=== PATIENT | male | born 1985 | race Two or more races ===

== ENCOUNTER 2017-09-04 18:53 | Emergency (ER) | payer OTHER ==
[~2017-09-04] VITALS: Ht 160 cm; Wt 75.3 kg
[~2017-09-04 18:53] MED LIST: SINGULAIR4 MG
== END 2017-09-04 22:38 | disposition home or self-care (01) ==
LOC: ER 18:53
DX: L03.114 Cellulitis of left upper limb (principal)

== ENCOUNTER 2024-03-11 09:56 | Emergency (ER) | payer OTHER ==
[~2024-03-11] VITALS: Ht 177.8 cm; Wt 73.5 kg
[2024-03-11] MEDS ORDERED: ADDERALL 15 MG15 MG (10:35)
[2024-03-11] MEDS ORDERED: DOXYCYCLINE HYCLATE 100 MG TABLET PO ONE (11:30)
== END 2024-03-11 12:23 | disposition home or self-care (01) ==
LOC: ER 09:56 → EDBD 09:56 → ER 10:03
DX: Z20.2 Contact with and (suspected) exposure to infections with a predominantly sexual mode of transmission (principal); Z88.0 Allergy status to penicillin

== ENCOUNTER 2024-03-12 16:50 | Emergency (ER) | payer OTHER ==
[~2024-03-12] VITALS: Ht 177.8 cm; Wt 73.5 kg
[~2024-03-12 16:50] MED LIST changes: +ADDERALL 15 MG15 MG
== END 2024-03-12 19:40 | disposition home or self-care (01) ==
LOC: ER 16:52
DX: K64.4 Residual hemorrhoidal skin tags (principal); Z88.0 Allergy status to penicillin

== ENCOUNTER 2025-02-20 10:28 | Emergency (ER) | payer OTHER ==
[~2025-02-20] VITALS: Ht 177.8 cm; Wt 78.0 kg
[2025-02-20] MEDS ORDERED: TRUVADA 100 MG1 EACH PO (10:38)
[2025-02-20] MEDS ORDERED: CIPROFLOXACIN IN 5 % DEXTROSE 400 MG/200 ML PIGGYBAG IV ONE (11:15)
[2025-02-20] MEDS ORDERED: FAMOTIDINE/PF 20 MG/2 ML VIAL IV ONE (11:15)
[2025-02-20] MEDS ORDERED: LACTOBACILLUS ACIDOPHILUS 1 CAP CAP PO ONE (11:15)
[2025-02-20] MEDS ORDERED: KETOROLAC TROMETHAMINE 30 MG VIAL IV ONE (11:15)
[2025-02-20] MEDS ORDERED: METRONIDAZOLE/SODIUM CHLORIDE 500 MG/100 ML PIGGYBACK IV ONE (11:15)
[2025-02-20 12:23] LABS: URINE APPEARANCE Clear; URINE BILIRRUBIN Negative (NEGATIVE); URINE BLOOD Negative; URINE COLOR Yellow; URINE GLUCOSE Negative (NEGATIVE); URINE KETONE Negative (NEGATIVE); URINE LEUKOCYTE Negative; URINE NITRATE Negative; URINE PROTEIN Negative (NEGATIVE); URINE UROBILINOGEN 0.2 E.U./dl
[2025-02-20 12:24] LABS: FECAL LEUKOCYTES POSITIVE (NEGATIVE)
[2025-02-20 12:26] LABS: URINE BACTERIA 4.8 uL (0.0-1933); URINE EPITHELIAL CELLS 1.9 uL (0.0-38.8); URINE RBC 2.0 uL (0.0-20.8)
[2025-02-20 12:27] LABS: URINE CAST 0.00 uL (0.0-1.40); URINE WBC 1.5 uL (0.0-23.2)
[2025-02-20 12:29] LABS: BASO % 0.4 % (0.1-1.2); EOS # 0.02 (0.04-0.54); EOS % 0.3 % (0.7-7.0); LYMPH # 1.48 (1.18-3.74); LYMPH % 21.3 % (19.3-53.1); MEAN PLATELET VOLUME 10.20 fl (9.4-12.4); MONO # 0.67 (0.24-0.82); MONO % 9.6 % (4.7-12.5); NEUT # 4.75 (1.56-6.13); NEUT % 68.3 % (34.0-71.1); RED CELL DISTRIBUTION WIDTH 14.0 % (11.6-14.4)
[2025-02-20 12:54] LABS: BUN CREA RATIO 9.0 (7.0-25.0); CREATININE SERUM 0.8 mg/dL (0.70-1.30); GFR 112.75; GLUCOSE FASTING 98.0 mg/dL (65-100); OSMOLALITY SERUM 277.0 MOSM/KG (275-295)
[2025-02-21] MEDS ORDERED: 0.9 % SODIUM CHLORIDE 1,000 ML IV SCH (09:00)
== END 2025-02-20 15:22 | disposition home or self-care (01) ==
LOC: ER 10:28
PROVIDERS: General Practice
DX: R10.9 Unspecified abdominal pain (principal); K52.9 Noninfective gastroenteritis and colitis, unspecified; Z88.0 Allergy status to penicillin

== ENCOUNTER 2025-03-15 20:26 | Emergency (ER) | payer OTHER ==
[~2025-03-15] VITALS: Ht 177.8 cm; Wt 75.7 kg
[~2025-03-15 20:26] MED LIST changes: +TRUVADA 100 MG1 EACH PO
[2025-03-15] MEDS ORDERED: METHYLPREDNISOLONE SOD SUCC 125 MG VIAL IV STA (21:28)
[2025-03-15] MEDS ORDERED: IPRATROPIUM BROMIDE 0.5 MG/2.5 ML AMPUL.NEB IH STA (21:29)
[2025-03-15] MEDS ORDERED: ALBUTEROL SULFATE 3 ML/2.5 MG AMPUL.NEB IH SCH (21:30)
[2025-03-15] MEDS ORDERED: ALBUTEROL SULFATE 3 ML/2.5 MG AMPUL.NEB IH ONE (22:02)
[2025-03-15] MEDS ORDERED: IPRATROPIUM BROMIDE 0.5 MG/2.5 ML AMPUL.NEB IH ONE (22:02)
[2025-03-15] MEDS ORDERED: METHYLPREDNISOLONE SOD SUCC 40 MG VIAL ONE (22:03)
[2025-03-15 22:19] LABS: BASO % 0.5 % (0.1-1.2); EOS # 0.22 (0.04-0.54); EOS % 5.8 % (0.7-7.0); LYMPH # 1.27 (1.18-3.74); LYMPH % 33.5 % (19.3-53.1); MEAN PLATELET VOLUME 10.70 fl (9.4-12.4); MONO # 0.38 (0.24-0.82); MONO % 10.0 % (4.7-12.5); NEUT # 1.89 (1.56-6.13); NEUT % 49.9 % (34.0-71.1); RED CELL DISTRIBUTION WIDTH 13.7 % (11.6-14.4)
[2025-03-15 22:30] LABS: ERYTHROCYTE SEDIMENTATION RATE 11 mm/hr (0-15)
[2025-03-15 22:43] LABS: ALT/SGPT 45.0 U/L (12-78); AST/SGOT 30.0 U/L (15-37); BILIRUBIN TOTAL 0.58 mg/dL (0.3-1.2); BUN CREA RATIO 8.0 (7.0-25.0); CREATININE SERUM 0.72 mg/dL (0.70-1.30); GFR 127.33; GLOBULINA 3.7 G/DL (2.4-3.5); GLUCOSE FASTING 97.0 mg/dL (65-100); OSMOLALITY SERUM 281.0 MOSM/KG (275-295)
[2025-03-15 23:48] LABS: COVID-19 AG NEGATIVE (NEGATIVE)
[2025-03-16] MEDS ORDERED: ALBUTEROL2.5 MG/3 M IH (01:47)
[2025-03-16] MEDS ORDERED: BUDESONIDE0.5 MG/2 M IH (01:47)
[2025-03-16] MEDS ORDERED: OSEL75CA PO (01:47)
== END 2025-03-16 02:10 | disposition home or self-care (01) ==
LOC: ER 20:27
PROVIDERS: Physician Assistant Medical
DX: B34.9 Viral infection, unspecified (principal); J10.1 Influenza due to other identified influenza virus with other respiratory manifestations; J20.1 Acute bronchitis due to Hemophilus influenzae; J45.909 Unspecified asthma, uncomplicated; R05.8 Other specified cough; R06.02 Shortness of breath; R50.9 Fever, unspecified; Z20.822 Contact with and (suspected) exposure to COVID-19; Z88.0 Allergy status to penicillin